=== PATIENT | female | born 1945 | race African-American/Black ===

== ENCOUNTER → 2020-03-29 | Outpatient (CLI) | payer MEDICARE ==
[~2020-03-29] MED LIST: ACLI400A3 INH; ALBU8.5H8 INH; ALPR1TAB2 PO; AMLO-150 PO; AMLODIPINE PO; ASPI-496 PO; ATOR40TA78 PO; CLON0.2T PO; CLONIDINE PO; CLOP75TA52 PO; GABA-826 PO; GABA100C PO; LISI-170 PO; METO-282 PO; Nebulizer; OMEP-110 PO; OXYC10TA6 PO; OXYC1TAB7 PO; PANT40TA6 PO; PANTOPRAZOLE PO; [UNRECOGNIZED DRUG - REMARK] NAS
== END | disposition home or self-care (01) ==
LOC: EDBD 03-24 09:00 → CVU 09:30
PROVIDERS: ATTEND Internal Medicine Cardiovascular Disease
DX: I08.8 Other rheumatic multiple valve diseases (principal); E78.5 Hyperlipidemia, unspecified; I11.9 Hypertensive heart disease without heart failure; I48.0 Paroxysmal atrial fibrillation; Z87.891 Personal history of nicotine dependence
CPT/HCPCS: 93306; 93356